=== PATIENT | female | born 1955 | race African-American/Black ===

== ENCOUNTER 2016-10-06 08:56 | Emergency (ER) | payer OTHER ==
[~2016-10-06] VITALS: Ht 170.2 cm; Wt 103.7 kg
[~2016-10-06 08:56] MED LIST: ADVAIR 250/501 DISK IH; ALEVE220 MG PO; CHILDREN'S ASPI81 M1 PO; COZAAR25 MG PO; GLUCOPHAGE500 MG PO; HYDROCHLOROTH12.5 M3 PO; LEVEMIR FL100 UNIT/1 SC; LIDODERM 5% P1 PATCH TD; LISINOPRIL10 MG PO; NAPROXEN500 MG PO; NITROSTAT0.4 MG SL; PROVENTIL HFA6.7 GM IH; PROVENTIL,2.5 MG/3 M IH
[2016-10-06 09:26] LABS: BASOPHIL COUNT 0.1 K/uL (0-0.1); EOSINOPHIL COUNT 0.1 K/uL (0-0.3); HEMATOCRIT 43.2 % (36.0-46.0); IMMATURE GRANULOCYTE (%) 0.1 % (0.0-0.7); IMMATURE GRANULOCYTE COUNT 0.1 K/uL; LYMPHOCYTE COUNT 1.6 K/uL (1.0-2.8); MCH 26.2 PG (29.0-34.0); MCHC 32.9 G/DL (30.0-36.0); MCV 79.7 FL (83-99); MEAN PLAT.VOLUME 11.5 uM^3 (9.5-12.4); MONOCYTE (%) 10.9 % (3-12); MONOCYTE COUNT 0.8 K/uL (0-0.8); NEUTROPHIL (%) 64.7 % (45-76); NEUTROPHIL COUNT 4.7 K/uL (1.8-6.4); PLATELET COUNT 219 K/uL (156-360); RBC DIS.WIDTH-SD 40.5 % (39-53); RED BLOOD COUNT 5.42 M/uL (3.80-5.20); WHITE BLOOD COUNT 7.3 K/uL (4.1-10.2)
[2016-10-06 09:42] LABS: CHLORIDE 108 mEq/L (99-109); POTASSIUM 3.7 mEq/L (3.7-5.4); SODIUM 141 mEq/L (136-147)
[2016-10-06 09:43] LABS: GLUCOSE 205 mg/dL (70-99)
[2016-10-06 09:45] LABS: ANION GAP 10 MEQ/L (2-14)
[2016-10-06 09:47] LABS: GFR ESTIMATE (CALCULATED) > 59 mL/min/
[2016-10-06 09:48] LABS: UREA NITROGEN (BUN) 14 mg/dL (9-23)
[2016-10-06 09:54] LABS: TROP-I INTERPRETATION NEGATIVE; TROPONIN-I 0.02 ng/mL (0.0-0.30)
[2016-10-06 10:50] LABS: ADD MIUA? YES; BILIRUBIN NEGATIVE; BLOOD NEGATIVE; COLOR YELLOW ((YELLOW)); GLUCOSE (STRIP) 50; KETONES NEGATIVE; LEUKOCYTES TRACE; NITRITE NEGATIVE; PROTEIN (STRIP) NEGATIVE; SPECIFIC GRAVITY 1.016 (1.000-1.030); UROBILINOGEN 0.2 MG/DL (0.2-1.0)
[2016-10-06 11:06] LABS: BACTERIA RARE /HPF; EPITHELIAL CELLS 1+ /HPF; MUCUS TRACE /LPF; RED BLOOD CELLS 0-5 /HPF (0-5); UCUL ADDED? NO
[2016-10-06 12:56] LABS: TROP-I INTERPRETATION NEGATIVE; TROPONIN-I < 0.01 ng/mL (0.0-0.30)
[2016-10-06] MEDS ORDERED: CIPRO500 MG PO (13:13)
[2016-10-06] MEDS ORDERED: TYLENOL WITH C1 EACH PO (13:13)
[2016-10-06 13:34] VITALS: BP 174/92
== END 2016-10-06 13:54 | disposition home or self-care (01) ==
LOC: EME → EDBD 08:56 → EME 08:56
PROVIDERS: Emergency Medicine
DX: R07.89 Other chest pain (principal); R10.9 Unspecified abdominal pain; K80.20 Calculus of gallbladder without cholecystitis without obstruction; N39.0 Urinary tract infection, site not specified; Z87.891 Personal history of nicotine dependence; Z91.041 Radiographic dye allergy status; J45.909 Unspecified asthma, uncomplicated; I50.9 Heart failure, unspecified; I10 Essential (primary) hypertension; K21.9 Gastro-esophageal reflux disease without esophagitis; Z79.82 Long term (current) use of aspirin; E11.9 Type 2 diabetes mellitus without complications; E78.5 Hyperlipidemia, unspecified; Z79.84 Long term (current) use of oral hypoglycemic drugs
CPT/HCPCS: 71010; 74176; 80048; 81003; 84484; 85025; 93005; 99281; 99284; J1885; J7030

== ENCOUNTER 2017-07-05 10:58 | Emergency (ER) | payer OTHER ==
[~2017-07-05] VITALS: Ht 172.7 cm; Wt 108.1 kg
[~2017-07-05 10:58] MED LIST changes: +CIPRO500 MG PO; +TYLENOL WITH C1 EACH PO
[2017-07-05 11:54] LABS: BASOPHIL COUNT 0.1 K/uL (0-0.1); EOSINOPHIL COUNT 0.1 K/uL (0-0.3); HEMATOCRIT 45.2 % (36.0-46.0); IMMATURE GRANULOCYTE (%) 0.2 % (0.0-0.7); INSTRUMENT ABS NEUTROPHIL CT 2.9 K/uL; LYMPHOCYTE COUNT 2.4 K/uL (1.0-2.8); MCH 26.1 PG (29.0-34.0); MCHC 31.4 G/DL (30.0-36.0); MCV 82.9 FL (83-99); MEAN PLAT.VOLUME 11.7 uM^3 (9.5-12.4); MONOCYTE COUNT 0.7 K/uL (0-0.8); NEUTROPHIL (%) 47.2 % (45-76); NEUTROPHIL COUNT 2.9 K/uL (1.8-6.4); PLATELET COUNT 249 K/uL (156-360); RBC DIS.WIDTH-SD 42.2 % (39-53); RED BLOOD COUNT 5.45 M/uL (3.80-5.20); WHITE BLOOD COUNT 6.1 K/uL (4.1-10.2)
[2017-07-05 12:03] LABS: CHLORIDE 108 mEq/L (99-109); POTASSIUM 4.1 mEq/L (3.7-5.4); SODIUM 139 mEq/L (136-147)
[2017-07-05 12:05] LABS: GLUCOSE 109 mg/dL (70-99)
[2017-07-05 12:06] LABS: ANION GAP 6 MEQ/L (2-14)
[2017-07-05 12:09] LABS: GFR ESTIMATE (CALCULATED) > 59 mL/min/
[2017-07-05 12:10] LABS: UREA NITROGEN (BUN) 18 mg/dL (9-23)
[2017-07-05 12:17] LABS: TROP-I INTERPRETATION NEGATIVE; TROPONIN-I < 0.01 ng/mL (0.0-0.30)
[2017-07-05 14:33] LABS: TROP-I INTERPRETATION NEGATIVE; TROPONIN-I < 0.01 ng/mL (0.0-0.30)
[2017-07-05 14:55] VITALS: BP 158/86
== END 2017-07-05 14:58 | disposition home or self-care (01) ==
LOC: EME 10:58
PROVIDERS: Emergency Medicine
DX: R07.89 Other chest pain (principal); Z73.3 Stress, not elsewhere classified; I10 Essential (primary) hypertension; E78.5 Hyperlipidemia, unspecified; J45.909 Unspecified asthma, uncomplicated; E11.9 Type 2 diabetes mellitus without complications; Z79.4 Long term (current) use of insulin; Z79.82 Long term (current) use of aspirin; Z87.891 Personal history of nicotine dependence
CPT/HCPCS: 71010; 80048; 84484; 85025; 93005; 99281; 99284

== ENCOUNTER 2017-10-29 11:35 | Inpatient (IN) | payer OTHER ==
[~2017-10-29] VITALS: Ht 170.2 cm; Wt 106.5 kg
[2017-10-29] VITALS (15 sets, daily range): BP systolic 116–209; BP diastolic 68–113
[~2017-10-29 11:35] MED LIST changes: +ASPIR 8181 M1 PO; -CHILDREN'S ASPI81 M1 PO; +COZAAR100 MG PO; -COZAAR25 MG PO
[2017-10-29 11:49] LABS: BASOPHIL (%) 0.8 % (0-1); BASOPHIL COUNT 0.1 K/uL (0-0.1); EOSINOPHIL (%) 1.7 % (0-5); EOSINOPHIL COUNT 0.1 K/uL (0-0.3); HEMATOCRIT 46.7 % (36.0-46.0); HEMOGLOBIN 14.8 G/DL (11.9-15.5); IMMATURE GRANULOCYTE (%) 0.3 % (0.0-0.7); LYMPHOCYTE (%) 34.9 % (15-42); LYMPHOCYTE COUNT 2.3 K/uL (1.0-2.8); MCHC 31.7 G/DL (30.0-36.0); MCV 81.9 FL (83-99); MONOCYTE (%) 10.6 % (3-12); MONOCYTE COUNT 0.7 K/uL (0-0.8); NEUTROPHIL (%) 51.7 % (45-76); NEUTROPHIL COUNT 3.4 K/uL (1.8-6.4); PLATELET COUNT 221 K/uL (156-360); RBC DIS.WIDTH-CV 13.9 % (11.8-14.6); RBC DIS.WIDTH-SD 40.6 % (39-53); WHITE BLOOD COUNT 6.5 K/uL (4.1-10.2)
[2017-10-29 12:01] LABS: AMYLASE 44 IU/L (1-118); CHLORIDE 105 mEq/L (99-109); POTASSIUM 3.9 mEq/L (3.7-5.4); PTT 27.7 SEC (25-37); SODIUM 139 mEq/L (136-147)
[2017-10-29 12:03] LABS: GLUCOSE 395 mg/dL (70-99)
[2017-10-29 12:06] LABS: CREATININE 1.1 mg/dL (0.6-1.3); GFR ESTIMATE (CALCULATED) > 59 mL/min/; SERUM ETHYL ALCOHOL < 10 mg/dL
[2017-10-29 12:07] LABS: UREA NITROGEN (BUN) 13 mg/dL (9-23)
[2017-10-29 12:09] LABS: LIPASE 7 U/L (1.0-51.0)
[2017-10-29 12:10] LABS: TROP-I INTERPRETATION NEGATIVE; TROPONIN-I < 0.01 ng/mL (0.0-0.30)
[2017-10-29] MEDS ORDERED: LEVEMIR100 UNIT/2 SC (15:30)
[2017-10-29] MEDS ORDERED: NOVOLOG100 UNIT/1 SC (15:31)
[2017-10-29] MEDS ORDERED: GLYBURIDE5 MG PO (15:31)
[2017-10-29] MEDS ORDERED: PRILOSEC20 MG PO (15:33)
[2017-10-30] VITALS (15 sets, daily range): BP systolic 98–174; BP diastolic 60–103
[2017-10-30] MEDS ORDERED: DUONEB 2.5-0.5 M3 ML AEROSOL (11:18)
[2017-10-31] VITALS (20 sets, daily range): BP systolic 98–188; BP diastolic 67–111
[2017-11-01] VITALS (18 sets, daily range): BP systolic 100–174; BP diastolic 66–115
[2017-11-01 21:08] LABS: HEMATOCRIT 47.3 % (36.0-46.0); HEMOGLOBIN 15.1 G/DL (11.9-15.5); MCH 26.2 PG (29.0-34.0); MCHC 31.9 G/DL (30.0-36.0); MCV 82.1 FL (83-99); PLATELET COUNT 212 K/uL (156-360); RBC DIS.WIDTH-CV 13.8 % (11.8-14.6); RBC DIS.WIDTH-SD 40.7 % (39-53); RED BLOOD COUNT 5.76 M/uL (3.80-5.20)
[2017-11-01 21:26] LABS: CHLORIDE 101 MEQ/L (99-109); MAGNESIUM 1.7 mg/dl (1.3-2.7); POTASSIUM 4.4 MEQ/L (3.7-5.4); SODIUM 136 MEQ/L (136-147)
[2017-11-01 21:32] LABS: CREATININE 0.9 MG/DL (0.6-1.3); GFR ESTIMATE (CALCULATED) > 59 mL/min/; GLUCOSE 335 mg/dL (70-99); PHOSPHORUS 3.4 mg/dL (2.5-4.9); UREA NITROGEN (BUN) 16 mg/dL (9-23)
[2017-11-02] VITALS (9 sets, daily range): BP systolic 117–163; BP diastolic 69–99
[2017-11-03 03:50] VITALS: BP 156/94
[2017-11-03 06:49] LABS: BASOPHIL (%) 0.6 % (0-1); BASOPHIL COUNT 0.1 K/uL (0-0.1); EOSINOPHIL (%) 0.6 % (0-5); EOSINOPHIL COUNT 0.1 K/uL (0-0.3); HEMOGLOBIN 14.5 G/DL (11.9-15.5); IMMATURE GRANULOCYTE (%) 0.3 % (0.0-0.7); LYMPHOCYTE (%) 17.5 % (15-42); LYMPHOCYTE COUNT 1.6 K/uL (1.0-2.8); MCH 25.5 PG (29.0-34.0); MCHC 31.5 G/DL (30.0-36.0); MCV 80.8 FL (83-99); MONOCYTE (%) 11.8 % (3-12); MONOCYTE COUNT 1.1 K/uL (0-0.8); NEUTROPHIL (%) 69.2 % (45-76); NEUTROPHIL COUNT 6.2 K/uL (1.8-6.4); PLATELET COUNT 221 K/uL (156-360); RBC DIS.WIDTH-CV 13.7 % (11.8-14.6); RED BLOOD COUNT 5.69 M/uL (3.80-5.20); WHITE BLOOD COUNT 8.9 K/uL (4.1-10.2)
[2017-11-03 07:17] LABS: CHLORIDE 102 MEQ/L (99-109); CREATININE 0.7 MG/DL (0.6-1.3); GFR ESTIMATE (CALCULATED) > 59 mL/min/; GLUCOSE 235 mg/dL (70-99); POTASSIUM 4.2 MEQ/L (3.7-5.4); SODIUM 138 MEQ/L (136-147); UREA NITROGEN (BUN) 15 mg/dL (9-23)
[2017-11-03 09:26] VITALS: BP 146/91
[2017-11-03 13:26] VITALS: BP 141/75
[2017-11-03 14:46] LABS: HEMOGLOBIN A1c (GLYCOHEMOGLOB) 10.3 % (Below 5.7)
[2017-11-03 17:02] VITALS: BP 133/79
[2017-11-03 20:41] VITALS: BP 172/85
[2017-11-03 23:53] VITALS: BP 164/80
[2017-11-04 05:03] VITALS: BP 104/62
[2017-11-04 05:21] LABS: BASOPHIL (%) 0.8 % (0-1); BASOPHIL COUNT 0.1 K/uL (0-0.1); EOSINOPHIL COUNT 0.1 K/uL (0-0.3); HEMATOCRIT 45.2 % (36.0-46.0); HEMOGLOBIN 14.3 G/DL (11.9-15.5); IMMATURE GRANULOCYTE (%) 0.1 % (0.0-0.7); LYMPHOCYTE (%) 23.2 % (15-42); LYMPHOCYTE COUNT 1.9 K/uL (1.0-2.8); MCH 25.9 PG (29.0-34.0); MCHC 31.6 G/DL (30.0-36.0); MCV 81.7 FL (83-99); MONOCYTE (%) 12.5 % (3-12); NEUTROPHIL (%) 62.4 % (45-76); NEUTROPHIL COUNT 5.2 K/uL (1.8-6.4); PLATELET COUNT 237 K/uL (156-360); RBC DIS.WIDTH-CV 13.9 % (11.8-14.6); RBC DIS.WIDTH-SD 40.9 % (39-53); RED BLOOD COUNT 5.53 M/uL (3.80-5.20); WHITE BLOOD COUNT 8.3 K/uL (4.1-10.2)
[2017-11-04 05:58] LABS: CHLORIDE 103 MEQ/L (99-109); CREATININE 0.7 MG/DL (0.6-1.3); GFR ESTIMATE (CALCULATED) > 59 mL/min/; GLUCOSE 193 mg/dL (70-99); POTASSIUM 4.4 MEQ/L (3.7-5.4); SODIUM 140 MEQ/L (136-147); UREA NITROGEN (BUN) 17 mg/dL (9-23)
[2017-11-04 07:30] VITALS: BP 140/75
[2017-11-04 12:02] VITALS: BP 172/71
[2017-11-04] MEDS ORDERED: BACLOFEN10 MG PO (13:49)
[2017-11-04] MEDS ORDERED: MIRTAZAPINE15 MG PO (13:49)
[2017-11-04] MEDS ORDERED: CLONAZEPAM0.5 MG PO (13:49)
[2017-11-04] MEDS ORDERED: LEVETIRACETAM500 MG PO (13:49)
[2017-11-04] MEDS ORDERED: METOPROLOL TA37.5 MG PO (13:49)
[2017-11-04] MEDS ORDERED: NIFEDIPINE ER60 MG PO (13:49)
[2017-11-04] MEDS ORDERED: ATORVASTATIN CA40 MG PO (13:51)
[2017-11-04 15:30] VITALS: BP 141/78
== END 2017-11-04 16:43 | DRG 65 ==
LOC: EME 11:35 → EDOF 12:25 → 4WEST 12:25 → ENRESERV 12:27 → EDOF 12:36 → ENRESERV 13:58 → 4WEST 14:11 → ENRESERV 11-01 19:53 → 4EAST 11-02 01:57 → ENPENDDIS 11-04 → 4EAST 11-04 16:43
PROVIDERS: Emergency Medicine; Hospitalist; Internal Medicine; Internal Medicine Critical Care Medicine
DX: I61.0 Nontraumatic intracerebral hemorrhage in hemisphere, subcortical (principal); G81.94 Hemiplegia, unspecified affecting left nondominant side; G81.91 Hemiplegia, unspecified affecting right dominant side; I11.0 Hypertensive heart disease with heart failure; I50.9 Heart failure, unspecified; F32.9 Major depressive disorder, single episode, unspecified; R29.810 Facial weakness; H53.2 Diplopia; E11.9 Type 2 diabetes mellitus without complications; J45.909 Unspecified asthma, uncomplicated; M19.90 Unspecified osteoarthritis, unspecified site; F41.9 Anxiety disorder, unspecified; F05 Delirium due to known physiological condition; Z79.899 Other long term (current) drug therapy; Z79.4 Long term (current) use of insulin; Z82.49 Family history of ischemic heart disease and other diseases of the circulatory system; Z87.891 Personal history of nicotine dependence; Z79.82 Long term (current) use of aspirin
CPT/HCPCS: 70450; 70496; 71045; 80048; 81003; 82150; 82948; 83036; 83690; 83735; 84100; 84484; 85025; 85027; 85610; 85730; 86850; 86900; 86901; 87641; 92610 GN; 94640; 94640 76; 94799; 97530 GO; 97530 GP; 99202; 99281; 99285; G0480; J1815; J1953; J2270; J2405; J7030; J7050